=== PATIENT | female | born 1975 | race Hispanic/Latino ===

== ENCOUNTER 2016-11-15 13:31 | Outpatient (CLI) | payer BC ==
--- NOTE | 2016-11-15 15:16 | MMO ---
RIGHT DIAGNOSTIC MAMMOGRAM: Date: 11/15/16 HISTORY: Abnormal screening mammography. Additional views. COMPARISON: 10/20/16 and 06/29/15. FINDINGS: Additional views of the right breast show no evidence of underlying mass or spiculation at the super ior aspect of the right breast. Scattered fibroglandular densities are stable. IMPRESSION: BIRADS Category 2 - benign findings. Suggest routine follow-up. POS: [facility]
== END 2016-11-15 13:32 | disposition home or self-care (01) ==
LOC: MAMMO 13:31
PROVIDERS: ATTEND Family Medicine
DX: R92.8 Other abnormal and inconclusive findings on diagnostic imaging of breast (principal)
CPT/HCPCS: G0206-RT

== ENCOUNTER 2017-10-27 16:02 | Outpatient (CLI) | payer BC | END 2017-10-27 16:03 | disposition home or self-care (01) | LOC: BICMAMMO 16:02 | PROVIDERS: ATTEND Family Medicine | DX: Z12.31 Encounter for screening mammogram for malignant neoplasm of breast (principal) | CPT/HCPCS: 77063; 77067 ==

== ENCOUNTER 2018-11-09 10:47 | Outpatient (CLI) | payer BC ==
--- NOTE | 2018-11-09 11:37 | MMO ---
Bilateral MAMMO Bilat Screen [facility]. CLINICAL HISTORY: Patient is 42 years old and is seen for screening. The patient has no family history of breast cancer. The patient has no personal history of cancer. VIEWS: The views performed were: bilateral craniocaudal with tomosynthesis and bilateral mediolateral oblique with tomosynthesis. FILMS COMPARED: The present examination has been compared to a prior imaging study performed at [facility] on 10/27/2017. This study has been interpreted with the assistance of computer-aided detection. MAMMOGRAM FINDINGS: There are scattered fibroglandular densities. There are benign appearing calcifications seen in both breasts. There are no suspicious masses, suspicious calcifications, or new areas of architectural distortion. IMPRESSION: THERE IS NO MAMMOGRAPHIC EVIDENCE OF MALIGNANCY. A ROUTINE FOLLOW-UP MAMMOGRAM IN 1 YEAR IS RECOMMENDED. THE RESULTS OF THIS EXAM WERE SENT TO THE PATIENT. ACR BI-RADS Category 2 - Benign finding MAMMOGRAPHY NOTE: 1. A negative mammogram report should not delay a biopsy if a dominant of clinically suspicious mass is present. 2. Approximately 10% to 15% of breast cancers are not detected by mammography. 3. Adenosis and dense breasts may obscure an underlying neoplasm. Reported by: ALEX FRANCOIS MD Electonically Signed: [id number]
== END 2018-11-09 10:48 | disposition home or self-care (01) ==
LOC: BICMAMMO 10:47
PROVIDERS: ATTEND Family Medicine
DX: Z12.31 Encounter for screening mammogram for malignant neoplasm of breast (principal)
CPT/HCPCS: 77063; 77067

== ENCOUNTER 2019-08-13 15:43 | Emergency (ER) | payer BC, OTHER ==
[2019-08-14 14:09] LABS: SARS-CoV-2 MS2 Positive; SARS-CoV-2 N Gene Negative; SARS-CoV-2 S Gene Negative; SARS-CoV-2 orf1ab Negative
== END 2019-08-13 16:34 | disposition home or self-care (01) ==
LOC: ERS 15:43
DX: Z20.828 Contact with and (suspected) exposure to other viral communicable diseases (principal); E03.9 Hypothyroidism, unspecified
CPT/HCPCS: 87635; 99282; U0003

== ENCOUNTER 2019-08-17 09:48 | Emergency (ER) | payer BC, OTHER | END 2019-08-17 10:50 | disposition home or self-care (01) | LOC: ERS 09:48 | DX: Z20.828 Contact with and (suspected) exposure to other viral communicable diseases (principal); E03.9 Hypothyroidism, unspecified | CPT/HCPCS: 87635; 99283; U0003 ==

== ENCOUNTER 2020-01-10 10:29 | Outpatient (CLI) | payer BC ==
--- NOTE | 2020-01-10 11:25 | MMO ---
Bilateral MAMMO Bilat Screen [facility]. CLINICAL HISTORY: Patient is 44 years old and is seen for screening. The patient has no family history of breast cancer. The patient has no personal history of cancer. VIEWS: The views performed were: bilateral craniocaudal with tomosynthesis and bilateral mediolateral oblique with tomosynthesis. FILMS COMPARED: The present examination has been compared to prior imaging studies performed at [facility] on 10/27/2017 and 11/09/2018. This study has been interpreted with the assistance of computer-aided detection. MAMMOGRAM FINDINGS: There are scattered fibroglandular densities. There are no suspicious masses, suspicious calcifications, or new areas of architectural distortion. IMPRESSION: THERE IS NO MAMMOGRAPHIC EVIDENCE OF MALIGNANCY. A ROUTINE FOLLOW-UP MAMMOGRAM IN 1 YEAR IS RECOMMENDED. THE RESULTS OF THIS EXAM WERE SENT TO THE PATIENT. ACR BI-RADS Category 1 - Negative MAMMOGRAPHY NOTE: 1. A negative mammogram report should not delay a biopsy if a dominant of clinically suspicious mass is present. 2. Approximately 10% to 15% of breast cancers are not detected by mammography. 3. Adenosis and dense breasts may obscure an underlying neoplasm. Reported by: JAY JAY SALGADO MD Electonically Signed: [id number]
== END 2020-01-10 10:30 | disposition home or self-care (01) ==
LOC: BICMAMMO 10:29
PROVIDERS: ATTEND Family Medicine
DX: Z12.31 Encounter for screening mammogram for malignant neoplasm of breast (principal)
CPT/HCPCS: 77063; 77067

== ENCOUNTER 2022-10-11 14:12 | Outpatient (CLI) | payer OTHER | END 2022-10-11 14:13 | disposition home or self-care (01) | LOC: ULT 14:12 | PROVIDERS: ATTEND Family Medicine | DX: R10.2 Pelvic and perineal pain (principal) | CPT/HCPCS: 76856; 93976 ==